=== PATIENT | male | born 1945 | race Caucasian/White ===

== ENCOUNTER → 2016-10-28 | Outpatient (CLI) | payer OTHER | END | disposition home or self-care (01) | LOC: CFH 10:16 | PROVIDERS: ATTEND Nurse Practitioner Family | DX: N28.1 Cyst of kidney, acquired (principal) | CPT/HCPCS: 76700 ==

== ENCOUNTER → 2017-05-06 | Outpatient (CLI) | payer OTHER | END | disposition home or self-care (01) | LOC: CFH 11:41 | PROVIDERS: ATTEND Urology | DX: N20.0 Calculus of kidney (principal); N28.1 Cyst of kidney, acquired; N21.0 Calculus in bladder; N40.0 Benign prostatic hyperplasia without lower urinary tract symptoms; K57.30 Diverticulosis of large intestine without perforation or abscess without bleeding; K21.9 Gastro-esophageal reflux disease without esophagitis | CPT/HCPCS: 74178; 82565 ==

== ENCOUNTER → 2018-02-14 | Outpatient (CLI) | payer OTHER ==
[~2018-02-14] MED LIST: AMLO5TAB7 PO; DUTA0.5C PEG; FINA5TAB PO; HYDR-3240 PO; LEVA15HF4 INH; LEVO100T5 PO; LOPE2CAP PO; MULT1TAB9 PO; NAPR-685 PO; OMEP-110 PO; SILD100T PO
== END | disposition home or self-care (01) ==
LOC: RAD 16:16
PROVIDERS: ATTEND Urology
DX: N13.2 Hydronephrosis with renal and ureteral calculous obstruction (principal); N21.0 Calculus in bladder
CPT/HCPCS: 74176

== ENCOUNTER 2018-02-15 11:28 | Day surgery (SDC) | payer OTHER ==
[~2018-02-15] VITALS: Ht 182.9 cm; Wt 78.7 kg
[2018-02-15 12:24] VITALS: BP 145/94
[2018-02-15] MEDS ORDERED: LEVA15HF4 INH (12:25)
[2018-02-15] MEDS ORDERED: LEVO100T5 PO (12:25)
[2018-02-15] MEDS ORDERED: AMLO5TAB7 PO (12:25)
[2018-02-15] MEDS ORDERED: HYDR-3240 PO (12:25)
[2018-02-15] MEDS ORDERED: LOPE2CAP PO (12:25)
[2018-02-15] MEDS ORDERED: DUTA0.5C PEG (12:25)
[2018-02-15] MEDS ORDERED: NAPR-685 PO (12:28)
[2018-02-15] MEDS ORDERED: MULT1TAB9 PO (12:28)
[2018-02-15] MEDS ORDERED: SILD100T PO (12:28)
[2018-02-15] MEDS ORDERED: OMEP-110 PO (12:28)
[2018-02-15] MEDS ORDERED: FINA5TAB PO (12:28)
[2018-02-15] MEDS ORDERED: LACTATED RINGERS 1,000 ML IV SCH (12:48)
[2018-02-15] MEDS ORDERED: MIDAZOLAM 1 MG/ML, 2ML ONE (15:02)
[2018-02-15] MEDS ORDERED: FENTANYL PF 100 MCG/2ML ONE (15:02)
[2018-02-15] MEDS ORDERED: PHENYLEPHRINE 10 MG/ML ONE (15:29)
[2018-02-15] MEDS ORDERED: PROPOFOL 10 MG/ML, 20ML ONE (15:29)
[2018-02-15] MEDS ORDERED: EPHEDRINE 50 MG/ML, 1ML ONE (15:29)
[2018-02-15] MEDS ORDERED: CEFAZOLIN 1,000 MG ONE ×2 (15:48)
[2018-02-15] MEDS ORDERED: KETOROLAC 30 MG/1 ML IV PRN (16:30)
[2018-02-15] MEDS ORDERED: ALBUTEROL SULFATE 2.5 MG/3 ML NPPB PRN (16:30)
[2018-02-15] MEDS ORDERED: MIDAZOLAM 1 MG/ML, 2ML IV PRN (16:30)
[2018-02-15] MEDS ORDERED: ACETAMINOPHEN 325 MG TABLET PO PRN (16:30)
[2018-02-15] MEDS ORDERED: ONDANSETRON 2MG/ML, 2ML IV PRN (16:30)
[2018-02-15] MEDS ORDERED: MEPERIDINE/PF 25MG/0.5ML IVPush PRN (16:30)
[2018-02-15] MEDS ORDERED: FENTANYL PF 100 MCG/2ML IV PRN (16:30)
[2018-02-15] MEDS ORDERED: hydrALAzine 20 MG/ML, 1ML IV PRN (16:30)
[2018-02-15] MEDS ORDERED: HYDROmorphone 1 MG/ML, 1ML IV PRN (16:30)
[2018-02-15] MEDS ORDERED: LABETALOL 5MG/ML, 20ML IV PRN (16:30)
[2018-02-15] MEDS ORDERED: HYDROcodone/APAP 5/325 TABLET PO PRN (17:00)
[2018-02-16] MEDS ORDERED: LOPERAMIDE 2 MG CAPSULE PO SCH (09:00)
[2018-02-16] MEDS ORDERED: OMEPRAZOLE 20 MG CAPSULE.DR PO SCH (09:00)
== END 2018-02-15 19:45 | disposition home or self-care (01) ==
LOC: OUT 11:28 → 4NOR 17:26 → OUT 19:45
PROVIDERS: ATTEND Urology
DX: N20.1 Calculus of ureter (principal); N21.0 Calculus in bladder; I10 Essential (primary) hypertension; E03.9 Hypothyroidism, unspecified; K21.9 Gastro-esophageal reflux disease without esophagitis; J45.909 Unspecified asthma, uncomplicated; Z72.89 Other problems related to lifestyle; Z87.891 Personal history of nicotine dependence
CPT/HCPCS: 50590; 52317; 82360; 88300; 93005; J0690; J2250; J2370; J2704; J3010; J7120; G0378